=== PATIENT | female | born 1980 | race Caucasian/White ===

== ENCOUNTER 2016-11-26 06:02 | Inpatient (IN) | payer OTHER ==
[2016-11-26] MEDS ORDERED: Sodium Citrate/Citric Acid* 15 ML UDC ONE (06:38)
[2016-11-26] MEDS ORDERED: ceFOXitin 2 GM IVPREMIX* 2 GM/50 ML BAG ONE (06:38)
[2016-11-26] MEDS ORDERED: Famotidine IV* 10 MG/ML 2 ML (20 mg) IV ONE (07:23)
[2016-11-26] MEDS ORDERED: Buffered Lidocaine 1% SYR 3ML* 3 ML/SYR SYRINGE INTRADERM ONE (07:23)
[2016-11-26] MEDS ORDERED: Sodium Citrate/Citric Acid* 15 ML UDC PO ONE (07:23)
[2016-11-26] MEDS ORDERED: Famotidine IV* 10 MG/ML 2 ML (20 mg) ONE (07:27)
[2016-11-26] MEDS ORDERED: Morphine PF AMP (0.5MG/ML)* 5 MG/10 ML AMP ONE (07:40)
[2016-11-26] MEDS ORDERED: OXYTOCIN* 10 UNITS/ML 1 ML VIAL ONE ×3 (07:41→08:41)
[2016-11-26] MEDS ORDERED: Ondansetron INJ* 2 MG/ML VIAL ONE (07:41)
[2016-11-26] MEDS ORDERED: Dexamethasone IV* 4 MG/ML 1 ML (4 MG) ONE (07:41)
[2016-11-26] MEDS ORDERED: Phenylephrine IV* 40 MCG/ML 10 ML SYRINGE ONE (07:41)
[2016-11-26] MEDS ORDERED: oxyCODONE/Acetamin 5/325 MG* TAB PO PRN ×2 (08:50)
[2016-11-26] MEDS ORDERED: Naloxone* 0.4 MG/ML 1 ML VIAL IV PRN (08:50)
[2016-11-26] MEDS ORDERED: Ondansetron INJ* 2 MG/ML VIAL IV PRN (08:50)
[2016-11-26] MEDS ORDERED: Nalbuphine* 20 MG/ML 1 ML VIAL IV PRN ×2 (08:50)
[2016-11-26] MEDS ORDERED: Dibucaine 1% 28.35 GM TUBE PR PRN (09:12)
[2016-11-26] MEDS ORDERED: Glycerin ADULT SUPP PR PRN (09:12)
[2016-11-26] MEDS ORDERED: Witch Hazel PAD* JAR TOPICAL PRN (09:12)
[2016-11-26] MEDS ORDERED: Acetaminophen TAB* 325 MG PO PRN (09:12)
[2016-11-26] MEDS ORDERED: Oxytocin in LR* 20 UNITS/1,000 ML BAG IVPB SCH (10:00)
[2016-11-26] MEDS: Ketorolac INJ* 30 MG/ML 1 ML VIAL IV PRN ×2 (13:47→20:06)
[2016-11-26] MEDS: Simethicone TAB* 80 MG TAB.CHEW PO SCH ×3 (13:57→20:29)
[2016-11-26] MEDS: Ibuprofen TAB* 600 MG PO SCH ×2 (13:57→20:21)
[2016-11-26] MEDS: Docusate CAP* 100 MG PO SCH ×2 (20:06→20:23)
[2016-11-27] MEDS: Ibuprofen TAB* 600 MG PO SCH ×2 (01:03→04:16)
[2016-11-27] MEDS: oxyCODONE/Acetamin 5/325 MG* TAB PO PRN ×4 (01:03→20:13)
--- NOTE | 2016-11-27 01:48 | OP ---
DATE OF OPERATION: 11/26/16 - ROOM #105 DATE OF : 80 SURGEON: Dominga Jaffe MD DIGITAL COMMUNICATIONS MANAGER: Felecia Parada MD ANESTHESIOLOGIST: Dr. Vasquez. ANESTHESIA: Spinal. PRE-OP DIAGNOSES: Intrauterine at 39 and 0/7th weeks as well as repeat section. POST-OP DIAGNOSES: Intrauterine at 39 and 0/7th weeks as well as repeat section. OPERATIVE PROCEDURE: Low-transverse section with vacuum extraction. ESTIMATED BLOOD LOSS: 700 cc. IV FLUIDS: 2100 cc of crystalloid. URINE OUTPUT: 100 cc of clear yellow urine. FINDINGS: She revealed a vertex female with Apgars 9 at 1 minute and 9 at 5 minutes, weight was 9 pounds 3 ounces, vacuum extraction to application floating in the pelvis not engaged. Placenta, posterior implantation manually extracted three vessel cord normal and intact. Normal appearing tubes and ovaries. COMPLICATIONS: None apparent. DISPOSITION: Stable to recovery room. DESCRIPTION OF PROCEDURE: The patient was placed in dorsal lithotomy position. The abdomen was prepped and draped in sterile standard fashion. Anesthesia was tested to appropriate level. The patient was identified using universal protocol, incision was made through prior incision and carried down to the fascia. The fascia was scored in the midline. The fascia was then extended laterally and superiorly using curved Chen scissors, the fascia was separately superiorly and inferiorly from the rectus muscle using blunt and sharp dissection. The peritoneum was then entered bluntly. A bladder blade was inserted, lower uterine segment was identified tended with an Allis. An incision was made using a scalpel, this was carried down through to membranes. Amniotomy was noted for copious fluid clear in nature. Incision was extended laterally and superiorly using bandage scissors. The infant was found to be floating not engaged. The vacuum was applied and unable to deliver the head for the first time. The second vacuum application was successful. was delivered. Anterior and posterior shoulder delivered. No nuchal cord appreciated. The cord was then doubly clamped and cut. Infant was handed off to waiting lion tamer, Dr. Agudelo. The appropriate cord blood was obtained. The placenta was then manually extracted. The uterus was exteriorized. The cavity was wiped clean and noted to be free of any membranes or placental tissue. The tubes and ovaries noted to have a normal appearance. The uterine incision was then reapproximated using 2 layers, the first layer running locked 0 Vicryl, second layer running imbricated 0 Vicryl. The uterus was returned intra-abdominally and colic gutters were lavaged. Hemostasis was assured at the hysterotomy site. The peritoneum was then reapproximated using 3 -0 Vicryl in a running fashion. Subfascial area was visualized. Hemostasis assured and the fascia itself was reapproximated using 0 Vicryl x2 in a running fashion. Subcu was lavaged. Hemostasis was assured with Bovie coagulation. A subcuticular fat stitch was placed using 3-0 Vicryl in an interrupted fashion. The skin was then reapproximated using 4-0 Monocryl in a subcuticular fashion. Mastisol and Steri's were applied. All sponge, needle, instrument, and blade counts were correct throughout the case. The patient tolerated the procedure well and went to recovery room in stable condition. [id number] #: [id number] [facility]
[2016-11-27] MEDS: Docusate CAP* 100 MG PO SCH ×3 (08:23→20:14)
[2016-11-27] MEDS: Simethicone TAB* 80 MG TAB.CHEW PO SCH ×4 (08:23→20:14)
[2016-11-27 08:38] LABS: Hematocrit 28 % (35-47); Hemoglobin 9.3 g/dl (12.0-16.0); Mean Corpuscular HGB Conc 33 g/dl (31-36); Mean Corpuscular Hemoglobin 29 pg (27-31); Mean Corpuscular Volume 87 fL (80-97); Mean Platelet Volume 9 um3 (7.4-10.4); Red Blood Count 3.25 10^6/ul (4.0-5.4); Red Cell Distribution Width 16 % (10.5-15); White Blood Count 11.8 10^3/ul (3.5-10.8)
[2016-11-27] MEDS: Ferrous Gluconate TAB* 324 MG TAB PO SCH ×2 (09:00→20:14)
[2016-11-27] MEDS: Ibuprofen TAB* 600 MG PO PRN ×2 (12:21→18:10)
[2016-11-28] MEDS: Ibuprofen TAB* 600 MG PO PRN ×3 (00:17→20:06)
[2016-11-28] MEDS: oxyCODONE/Acetamin 5/325 MG* TAB PO PRN ×3 (06:09→21:37)
[2016-11-28] MEDS: Docusate CAP* 100 MG PO SCH ×3 (08:57→20:06)
[2016-11-28] MEDS: Simethicone TAB* 80 MG TAB.CHEW PO SCH ×4 (08:57→20:06)
[2016-11-28] MEDS: Ferrous Gluconate TAB* 324 MG TAB PO SCH ×2 (08:57→20:05)
[2016-11-29] MEDS: Ibuprofen TAB* 600 MG PO PRN ×2 (03:09→09:16)
[2016-11-29] MEDS: Ferrous Gluconate TAB* 324 MG TAB PO SCH (09:10)
[2016-11-29] MEDS: Simethicone TAB* 80 MG TAB.CHEW PO SCH ×2 (09:13→13:05)
[2016-11-29 10:28] VITALS: BP 125/76
[2016-11-29] MEDS: Docusate CAP* 100 MG PO SCH (13:07)
== END 2016-11-29 13:55 | disposition home or self-care (01) | DRG 766 ==
LOC: MCHOB 06:02
PROVIDERS: ADMIT Obstetrics & Gynecology; ATTEND Obstetrics & Gynecology
PROC: 10D00Z1 Extraction of Products of Conception, Low, Open Approach (ICD-10-PCS; principal; 2016-11-26 07:45)
DX: O34.211 Maternal care for low transverse scar from previous cesarean delivery (principal); O09.523 Supervision of elderly multigravida, third trimester; Z3A.39 39 weeks gestation of pregnancy; Z37.0 Single live birth
CPT/HCPCS: 36415; 85025; A9270-GY; J0694; J1100; J1885; J2405; J2590